=== PATIENT | female | born 1955 | race Caucasian/White ===

== ENCOUNTER 2021-07-10 10:11 | Emergency (ER) | payer OTHER ==
[2021-07-10 10:26] VITALS: BP 143/60; PULSE 69; TEMP 97.9; BMI 28.3
[2021-07-10] MEDS ORDERED: LIDOCAINE 5% TOPICAL PATCH TP ONE (12:17)
[2021-07-10] MEDS ORDERED: KETOROLAC TROMETHAMINE 30 MG/1 ML VIAL IM ONE (12:17)
[2021-07-10] MEDS ORDERED: diazePAM 5 MG TABLET PO ONE (12:17)
[2021-07-10] MEDS ORDERED: LIDOCAINE 5% TOPICAL PATCH ONE (12:31)
[2021-07-10] MEDS ORDERED: KETOROLAC TROMETHAMINE 30 MG/1 ML VIAL ONE (12:31)
[2021-07-10] MEDS ORDERED: diazePAM 5 MG TABLET ONE (12:31)
[2021-07-10] MEDS ORDERED: LIDOCAINE PATCH REMOVAL MC ONE (22:00)
== END 2021-07-10 14:24 | disposition home or self-care (01) ==
LOC: JER 10:11
PROC: 3E0233Z Introduction of Anti-inflammatory into Muscle, Percutaneous Approach (ICD-10-PCS; principal; 2021-07-10)
DX: M62.838 Other muscle spasm (principal); M54.2 Cervicalgia
CPT/HCPCS: 99284-25

== ENCOUNTER 2022-05-13 07:06 | Day surgery (SDC) | payer OTHER ==
[2022-05-10 17:27] VITALS: BMI 27.3
[2022-05-13] MEDS ORDERED: MIDAZOLAM HCL 2 MG/2 ML SINGLE DOSE VIAL ONE (08:59)
[2022-05-13] MEDS ORDERED: BUPIVACAINE HCL/PF 2.5 MG/ML - 30 ML VIAL IJ ONE (09:01)
[2022-05-13] MEDS ORDERED: BUPIVACAINE HCL/PF 0.25% (2.5MG/ML) 10 ML VIAL IJ ONE ×2 (09:38)
[2022-05-13] MEDS ORDERED: PROPOFOL 20 ML ONE (09:44)
[2022-05-13] MEDS ORDERED: KETOROLAC TROMETHAMINE 30 MG/1 ML VIAL ONE (09:45)
[2022-05-13] MEDS ORDERED: ceFAZolin SODIUM 1 GM VIAL ONE (09:45)
[2022-05-13] MEDS ORDERED: DEXAMETHASONE SOD PHOSPHATE 4 MG/1 ML VIAL ONE (09:45)
[2022-05-13] MEDS ORDERED: ONDANSETRON 4 MG/2 ML VIAL ONE ×2 (09:45→11:46)
[2022-05-13] MEDS ORDERED: oxyCODONE HCL 5 MG TABLET PO PRN ×2 (10:00)
[2022-05-13] MEDS ORDERED: LACTATED RINGERS SOLUTION 1,000 ML IV SCH (10:00)
[2022-05-13] MEDS ORDERED: ACETAMINOPHEN 1000 MG/100 ML BAG IVPB ONE (10:02)
[2022-05-13] MEDS ORDERED: FENTANYL CITRATE/PF 50 MCG/ML VIAL ONE ×2 (10:02→10:23)
[2022-05-13] MEDS: ONDANSETRON 4 MG/2 ML VIAL IVPUSH PRN ×2 (10:07→11:51)
[2022-05-13] MEDS ORDERED: MIDAZOLAM HCL 2 MG/2 ML SINGLE DOSE VIAL IVPUSH ONE (10:38)
[2022-05-13] MEDS ORDERED: oxyCODONE HCL 5 MG TABLET ONE (11:12)
[2022-05-13 11:27] VITALS: RESP 16; TEMP 97.8
[2022-05-13] MEDS ORDERED: ONDANSETRON 4 MG/2 ML VIAL IVPUSH ONE (12:05)
[2022-05-13 12:14] VITALS: BP 119/74; PULSE 62
== END 2022-05-13 12:25 | disposition home or self-care (01) ==
LOC: FASU 07:06
PROVIDERS: ATTEND Orthopaedic Surgery
PROC: 0SBD4ZZ Excision of Left Knee Joint, Percutaneous Endoscopic Approach (ICD-10-PCS; 2022-05-13)
PROC: 0SBD4ZZ Excision of Left Knee Joint, Percutaneous Endoscopic Approach (ICD-10-PCS; principal; 2022-05-13 08:45)
DX: S83.242A Other tear of medial meniscus, current injury, left knee, initial encounter (principal); S83.282A Other tear of lateral meniscus, current injury, left knee, initial encounter; S83.8X2A Sprain of other specified parts of left knee, initial encounter; M65.862 Other synovitis and tenosynovitis, left lower leg; X58.XXXA Exposure to other specified factors, initial encounter; Y93.9 Activity, unspecified; Y92.9 Unspecified place or not applicable
CPT/HCPCS: 82962; 94760